=== PATIENT | female | born 1985 | race Two or more races ===

== ENCOUNTER 2019-04-04 05:03 | Inpatient (IN) | payer SELFPAY ==
[~2019-04-04] VITALS: Ht 172.7 cm; Wt 65.8 kg
[2019-04-04] VITALS (18 sets, daily range): BP systolic 111–146; BP diastolic 54–87
--- NOTE | 2019-04-04 05:15 | NUR ---
PT [id number] FROM HOME C/O OVERDOSE TYLENOL 500MG X 100 AND BENEDRYL 25MG X 100 X POSSIBLY 2-3 HOURS AGO. PT ALTERED AND NONVERBAL. PURPOSEFUL MOVEMENTS. RESPONDS TO PAINFUL STIMULI. PT ON MONITOR IN BED 2. WILL CONTINUE TO MONITOR.
--- NOTE | 2019-04-04 05:20 | NUR ---
PHLEB AT BEDSIDE FOR LAB DRAW
--- NOTE | 2019-04-04 05:26 | NUR ---
TECH AT BEDSIDE FOR EKG
[2019-04-04] MEDS ORDERED: SODIUM BICARBONATE SYR 50 MEQ/50 ML DISP.SYRIN IV ONE (05:30)
[2019-04-04] MEDS ORDERED: ACTIVATED CHARCOAL 25 GM/120 ML TUBE NG ONE (05:30)
[2019-04-04] MEDS ORDERED: SODIUM BICARBONATE SYR 100 MEQ in IV D5W 1,000 ML IV ONE (05:30)
[2019-04-04] MEDS ORDERED: ACETYLCYSTEINE 20% ORAL SOLN 6,000 MG/30 ML VIAL PO ONE (05:30)
[2019-04-04] MEDS ORDERED: ACETYLCYSTEINE 20% ORAL SOLN 6,000 MG/30 ML VIAL NG ONE (05:30)
[2019-04-04] MEDS ORDERED: IV NS 0.9% 1,000 ML BAG IV ONE (05:30)
[2019-04-04] MEDS ORDERED: ACETYLCYSTEINE 20% ORAL SOLN 6,000 MG/30 ML VIAL ONE (05:34)
[2019-04-04] MEDS ORDERED: SODIUM BICARBONATE SYR 50 MEQ/50 ML DISP.SYRIN ONE ×2 (05:34→06:18)
[2019-04-04] MEDS ORDERED: ACTIVATED CHARCOAL 25 GM/120 ML TUBE ONE (05:34)
[2019-04-04 05:37] LABS: BASOPHILS # (AUTO) 0.1 /CMM (0.0-0.2); BASOPHILS % (AUTO) 1.1 % (0.0-2.0); EOSINOPHILS % (AUTO) 1.4 % (0.0-6.0); HEMATOCRIT 41 % (33-45); HEMOGLOBIN 13.8 g/dL (11.5-14.8); LYMPHOCYTES # (AUTO) 2.3 /CMM (0.8-4.8); LYMPHOCYTES % (AUTO) 43.8 % (20.0-44.0); MEAN CORPUSCULAR HGB CONC 34 g/dl (31.0-36.0); MEAN CORPUSCULAR VOLUME 93 fL (82-100); MONOCYTES # (AUTO) 0.4 /CMM (0.1-1.30); MONOCYTES % (AUTO) 7.3 % (2.0-12.0); NEUTROPHILS # (AUTO) 2.5 /CMM (1.8-8.9); NEUTROPHILS % (AUTO) 46.4 % (43.0-81.0); PLATELET COUNT (AUTO) 328 /CMM (150-450); RED BLOOD CELL COUNT(AUTO) 4.43 MIL/uL (4.0-5.2); WHITE BLOOD COUNT (AUTO) 5.3 K/uL (4.3-11.0)
[2019-04-04 05:52] LABS: ALANINE AMINOTRANSFERASE 31 U/L (12-78); ALBUMIN 3.7 g/dL (3.4-5.0); ALCOHOL, BLOOD 175 mg/dL (0-0); ALKALINE PHOSPHATASE 63 U/L (46-116); ASPARTATE AMINOTRANSFERASE 24 U/L (15-37); BILIRUBIN,DIRECT 0.1 mg/dL (0.0-0.2); BILIRUBIN,TOTAL 0.2 mg/dL (0.2-1.0); CALCIUM, SERUM 8.4 mg/dL (8.5-10.1); CARBON DIOXIDE 24 mmol/L (21-32); CHLORIDE 107 mmol/L (98-107); CREATININE 0.6 mg/dL (0.6-1.3); GLUCOSE 82 mg/dL (74-106); POTASSIUM 3.9 mmol/L (3.5-5.1); SODIUM SERUM 144 mmol/L (136-145); TOTAL PROTEIN, SERUM 7.6 g/dL (6.4-8.2); UREA NITROGEN, BLOOD 6 mg/dL (7-18)
[2019-04-04 05:53] LABS: SALICYLATE 2.4 mg/dL (2.8-20.0)
[2019-04-04 05:55] LABS: ACETAMINOPHEN 199 ug/ml (10-30)
--- NOTE | 2019-04-04 05:56 | NUR ---
CROTOCAL LAB VALUE RELAYED TO . ORDERS INPLACE.
[2019-04-04] MEDS ORDERED: ACETYLCYSTEINE IV 6,000 MG/30 ML VIAL IV ONE ×2 (06:08→12:30)
[2019-04-04] MEDS ORDERED: ACETYLCYSTEINE IV ONE ×7 (06:30→08:30)
[2019-04-04] MEDS ORDERED: D5W IV ONE ×7 (06:30→08:30)
--- NOTE | 2019-04-04 07:10 | NUR ---
RADIOLOGY AT BEDSIDE FOR XRAY
--- NOTE | 2019-04-04 07:32 | NUR ---
REPORT RECEIVED FROM BLAIRE VARGAS FOR FRANC
--- NOTE | 2019-04-04 07:43 | NUR ---
PT IN BED, AOx4, HOOKED TO FILM SPOOLER, VSS, NOT IN DISTRESS, NOTED W NG TUBE HOOKED TO SUCTION W BROWNISH OUTPUT. ONGOING 1L NS, SODIUM BICARB AND ACETYLCYSTEINE. KEPT WARM AND COMFORTABLE. WILL CONTINUE TO MONITOR
[2019-04-04 08:26] LABS: APPEARANCE,URINE Clear (CLEAR); BILIRUBIN,URINE Negative (NEGATIVE); BLOOD, URINE Moderate Ery/uL (NEGATIVE); COLOR,URINE Yellow (YELLOW); KETONES,URINE >=160 (NEGATIVE); LEUKOCYTE ESTERASE ,URINE Negative (NEGATIVE); NITRITE, URINE Negative (NEGATIVE); PH,URINE 7.5 (5.0-8.0); PROTEIN,URINE Negative (NEGATIVE); UGLUCOSE Negative (NEGATIVE); UROBILINOGEN,URINE 0.2 EU/dL (0.2)
[2019-04-04 08:38] LABS: BACTERIA,URINE None seen /HPF (None Seen); SQUAMOUS EPITHELIAL CELL,UR Few /HPF (None Seen); WBC,URINE 0-2 /HPF (0-3)
[2019-04-04] MEDS ORDERED: TYLENOL PM (08:54)
[2019-04-04] MEDS ORDERED: BIRTH CONTROL (08:54)
[2019-04-04] MEDS ORDERED: [UNRECOGNIZED DRUG - REMARK] (08:54)
--- NOTE | 2019-04-04 09:02 | NUR ---
SPOKE TO FRANCH[facility]KA OF [facility]ISON [facility] CONTACT #
--- NOTE | 2019-04-04 10:16 | NUR ---
ICU 262
--- NOTE | 2019-04-04 10:32 | NUR ---
DR LAINEZ IN COMMUNICATION W [facility]. RECEIVED ORDER TO DC SODIUM BICARB, CARRIED OUT.
--- NOTE | 2019-04-04 10:53 | NUR ---
REPORT GIVEN TO ISIDRO VARGAS OF ICU
--- NOTE | 2019-04-04 11:05 | NUR ---
SENIOR SECURITY ARCHITECTPROFESSOR OF NURSING NOTE RECEIVED PATIENT FROM ER.RECEIVED REPORT FROM Sylvia.HENRY AXGIORGIO.ON RA.NO SOB NO DISTRESS NOTED.MUCOMYST 2ND BAG IS ONGOING.IV ON LAC AND R AC INTACT AND PATENT.BED IS LOCKED AND IN LOW POSITION.CALL LIGHT IN REACH.BED ALARM ON.WILL CONTINUE TO MONITOR.NO SUICIDE IDEATION.BOYFRIEND AT BEDSIDE.WILL CONTINUE TO MONITOR.
[2019-04-04] MEDS ORDERED: MAG HYDROX/AL HYDROX/SIMETH 30 ML UDC PO PRN (12:30)
[2019-04-04] MEDS ORDERED: MAGNESIUM HYDROXIDE 30 ML UDC PO PRN (12:30)
[2019-04-04] MEDS ORDERED: Z GUARD REMEDY 2 OZ OINT TP PRN (12:30)
[2019-04-04] MEDS ORDERED: ONDANSETRON HCL/PF 4 MG/2 ML VIAL IVP PRN (12:30)
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
[2019-04-04 13:41] LABS: BASOPHILS % (AUTO) 0.4 % (0.0-2.0); HEMATOCRIT 37 % (33-45); HEMOGLOBIN 12.2 g/dL (11.5-14.8); LYMPHOCYTES % (AUTO) 10.3 % (20.0-44.0); MEAN CORPUSCULAR HGB CONC 33 g/dl (31.0-36.0); MEAN CORPUSCULAR VOLUME 92 fL (82-100); MONOCYTES # (AUTO) 0.7 /CMM (0.1-1.30); MONOCYTES % (AUTO) 7.1 % (2.0-12.0); NEUTROPHILS # (AUTO) 8.2 /CMM (1.8-8.9); NEUTROPHILS % (AUTO) 82.2 % (43.0-81.0); PLATELET COUNT (AUTO) 309 /CMM (150-450); RED BLOOD CELL COUNT(AUTO) 3.98 MIL/uL (4.0-5.2)
[2019-04-04 13:53] LABS: ALBUMIN 3.3 g/dL (3.4-5.0); BILIRUBIN,TOTAL 0.3 mg/dL (0.2-1.0); CALCIUM, SERUM 7.6 mg/dL (8.5-10.1); CREATININE 0.8 mg/dL (0.6-1.3); POTASSIUM 3.5 mmol/L (3.5-5.1); TOTAL PROTEIN, SERUM 6.8 g/dL (6.4-8.2)
--- NOTE | 2019-04-04 16:00 | NUR ---
COUNTRY MANAGER NOTE GOT CALL FROM POISON CONTR[facility],SPOKE TO [place].CONTINUE SAME MEDICATION.DO ANOTHER TYLENOL LEVEL ONE HOUR BEFORE FINISHING THE CURRENT TREATMENT AND F/U WITH POISON CONTROL FOR CONTINUATION OF THERAPY.MONITOR QRS COMPLEX.IF IT IS >0.12 GIVE BOLUS OF BICARB 50-100MCG.CMP [id number].WILL CONTINUE TO MONITOR.
--- NOTE | 2019-04-04 18:38 | NUR ---
RN EMERGENCY CLOSING NOTE PATIENT AXOX4.ON RA.NO SOB NO DISTRESS NOTED.MUCOMYST 3RD BAG IS ONGOING.IV ON LAC AND R AC INTACT AND PATENT.ON TELE MONITOR SR HR 68.BED IS LOCKED AND IN LOW POSITION.CALL LIGHT IN REACH.BED ALARM ON.NO SUICIDE IDEATION.BOYFRIEND AT BEDSIDE.WILL ENDORSE TO PM NURSE FOR FRANC.
--- NOTE | 2019-04-04 20:00 | NUR ---
RN NOTE CALLED [facility] AT , SPOKE TO TIM, [facility] IS AWARE OF THE TYLENOL TOXICOLOGY 25 UG/ML, PER [facility] CONTINUE ONGOING MYCOMIST IV BAG , DRAW TYLENOL LEVEL AT 3AM, AND CALL [facility] AGAIN ONCE TYLENOL LEVEL IS AVAILABLE
--- NOTE | 2019-04-04 20:00 | NUR ---
RN NOTE PATIENT AXOX4.ON ROOM AIR. NO RESPIRATORY DISTRESS NOTED.MUCOMYST 3RD BAG IV IS ONGOING.IV ON LAC AND R AC INTACT AND PATENT.ON TELE MONITOR SR HR 63.BED IS LOCKED AND IN LOW POSITION.CALL LIGHT IN REACH.BED ALARM ACTIVE .NO SUICIDE IDEATION NOTED, WILL CONTINUE TO MONITOR PATIENT
[2019-04-04 20:47] LABS: ALBUMIN 3.3 g/dL (3.4-5.0); BILIRUBIN,TOTAL 0.5 mg/dL (0.2-1.0); CALCIUM, SERUM 7.9 mg/dL (8.5-10.1); CREATININE 0.8 mg/dL (0.6-1.3); POTASSIUM 2.9 mmol/L (3.5-5.1); TOTAL PROTEIN, SERUM 6.7 g/dL (6.4-8.2)
--- NOTE | 2019-04-04 21:00 | NUR ---
RN NOTE POTASSIUM OF 2.9 NOTED, NOTIFIED DR ROBERTO, NEW ORDER OF POTASSIUM 40 MEQ PO ONCE GIVEN AND CARRIED OUT, WILL CONTINUE TO MONITOR PATIENT
[2019-04-04] MEDS ORDERED: POTASSIUM CHLORIDE 20 MEQ TAB.PRT.SR PO ONE (21:30)
--- NOTE | 2019-04-04 21:41 | NUR ---
RN NOTE ADMINISTERED POTASSIUM 40 MEQ PO, TOLERATED WELL
[2019-04-05] VITALS (18 sets, daily range): BP systolic 102–154; BP diastolic 54–93
[2019-04-05 01:49] LABS: ALBUMIN 3.2 g/dL (3.4-5.0); BILIRUBIN,TOTAL 0.5 mg/dL (0.2-1.0); CALCIUM, SERUM 8.2 mg/dL (8.5-10.1); CREATININE 0.8 mg/dL (0.6-1.3); POTASSIUM 3.5 mmol/L (3.5-5.1); TOTAL PROTEIN, SERUM 6.7 g/dL (6.4-8.2)
--- NOTE | 2019-04-05 03:00 | NUR ---
RN NOTE TYLENOL 0 LEVEL NOTED, NOTIFIED [facility], SPOKE TO AVE, PER AVE WAIT UNTIL RECEIVE CMP RESULT, IF ALT AND AST WITHIN NORMAL LIMITS, OK TO DC MUCOMYST ONGOING IV
[2019-04-05 03:03] LABS: BASOPHILS # (AUTO) 0.1 /CMM (0.0-0.2); EOSINOPHILS % (AUTO) 0.5 % (0.0-6.0); HEMATOCRIT 37 % (33-45); HEMOGLOBIN 12.6 g/dL (11.5-14.8); LYMPHOCYTES % (AUTO) 24.7 % (20.0-44.0); MEAN CORPUSCULAR HGB CONC 34 g/dl (31.0-36.0); MEAN CORPUSCULAR VOLUME 92 fL (82-100); MONOCYTES # (AUTO) 0.6 /CMM (0.1-1.30); MONOCYTES % (AUTO) 7.8 % (2.0-12.0); NEUTROPHILS # (AUTO) 5.4 /CMM (1.8-8.9); PLATELET COUNT (AUTO) 305 /CMM (150-450); RED BLOOD CELL COUNT(AUTO) 4.04 MIL/uL (4.0-5.2); WHITE BLOOD COUNT (AUTO) 8.2 K/uL (4.3-11.0)
[2019-04-05 03:18] LABS: ALBUMIN 3.3 g/dL (3.4-5.0); BILIRUBIN,TOTAL 0.5 mg/dL (0.2-1.0); CALCIUM, SERUM 8.4 mg/dL (8.5-10.1); CREATININE 0.8 mg/dL (0.6-1.3); MAGNESIUM 1.8 mg/dL (1.8-2.4); PHOSPHORUS 2.7 mg/dL (2.5-4.9); POTASSIUM 3.4 mmol/L (3.5-5.1); TOTAL PROTEIN, SERUM 6.8 g/dL (6.4-8.2)
--- NOTE | 2019-04-05 07:30 | NUR ---
RN NOTES RECEIVED PATIENT IN BED, A/A/0X4, ABLE TO MAKE NEEDS KNOWN, ON ROOM AIR. NO SHORTNESS OF BREATH NOTED AT THIS TIME. NO COMPLAINTS OF PAIN. SINUS RHYTHM ON THE MONITOR WITH HR ON THE 60'S. IV ON THE RAC AND LAC IN PLACE, DRESSING CDI, BOTH SALINE LOCK. PATIENT ABLE TO MOVE AROUND IN BED. ENCOURAGE TO VERBALIZE FEELINGS AND CONCERNS. CALL LIGHT PLACED WITHIN REACH. SAFETY MEASURES OBSERVED AND MAINTAINED. BED IN LOW AND LOCKED POSITION. WILL CONTINUE TO MONITOR CLOSELY
[2019-04-05] MEDS ORDERED: POTASSIUM CL. PREMIX PERIPHER. 50 ML IV SCH (10:30)
--- NOTE | 2019-04-05 11:00 | NUR ---
RN NOTES SEEN AND EXAMINED BY DR. POWELL, WITH ORDERS FOR DISCHARGE IF OK WITH POISON CONTROL.
--- NOTE | 2019-04-05 11:20 | NUR ---
RN NOTES CALLED [facility], SPOKE TO TYLER TO WHOM I SHARE THE LATEST TYLENO LEVEL AT 0, AST AT 15 AND ALT AT 24. PER TYLER THERE IS NO ORDERS OR RECCOMMENDATIONS AT THIS TIME. AND PATIENT IS OKAY TO DISCHARGE. INFORMED DR. POWELL
--- NOTE | 2019-04-05 11:58 | NUR ---
RN NOTES PATIENT DISCHARGE. ALL CONCERNS AND QUESTIONS ADDRESSED APPROPRIATELY. SKIN ASSESSMENT DONE AND NOTED TO BE INTACT. ALL BELONGINGS ACCOUNTED AND GIVEN BACK TO THE PATIENT. ALL DISCHARGED AND MEDICATION INSTRUCTION GIVEN TO THE PATIENT. INFORMED PATIENT SPECIFICALLY, THAT PAPER WORK SHOWS NEED TO FINALIZE MEDICATION BUT THIS IS JUST BECAUSE MD DID NOT GAVE ANY MEDICATION ON DISCHARGE TO BE FINALIZED. PATIENT REFUSED PNEUMONIA VACCINE WHEN OFFERED. ID BANDS REMOVED. IV ACCESS REMOVED. PATIENT LEFT THE UNIT AMBULATORY ACCOMPANIED BY THE BOYFRIEND
--- NOTE | 2019-04-05 12:32 | NUR ---
[facility] consult requested by Dr. Mustafa for Tylenol OD. Pt. is a 33-year-old female who presented to the emergency room for altered mentation. Per H&P by Dr. Mustafa, patient couldn't sleep and took unknown amount of Tylenol PM. Patient denies any suicidal ideation or attempts. In the emergency room patient was found to have elevated Tylenol levels at 199. Poison control was contacted and recommendations were followed. [facility] was about to see the pt. but was informed by SAVAGE Toth that pt. was discharged this morning around 11:30AM back home with her boyfriend.
== END 2019-04-05 13:00 | disposition home or self-care (01) | DRG 917 ==
LOC: ER 05:05 → ICU 10:26
PROVIDERS: ADMIT Internal Medicine; ATTEND Internal Medicine
DX: T39.1X1A Poisoning by 4-Aminophenol derivatives, accidental (unintentional), initial encounter (principal); G92 Toxic encephalopathy; Y92.89 Other specified places as the place of occurrence of the external cause; F17.210 Nicotine dependence, cigarettes, uncomplicated
CPT/HCPCS: 36415; 71045-TC; 80048-TC; 80053-TC; 80061-TC; 80076-TC; 80305; 81000-TC; 83605-TC; 83735-TC; 84100-TC; 84484-TC; 84702-TC; 84703-TC; 85025-TC; 85610-TC; 85730-TC; 87081-TC; A4217; G0378; G0480; J0132; J3490; J7030; J7060; J7070